=== PATIENT | male | born 1985 | race Caucasian/White ===

== ENCOUNTER 2020-12-05 22:02 | Emergency (ER) | payer OTHER ==
[~2020-12-05] VITALS: Ht 182.9 cm; Wt 113.6 kg
[2020-12-05 22:59] LABS: BASOPHILS % (AUTO) 1 % (0-1); EOSINOPHILS % (AUTO) 2 % (1-7); LYMPHOCYTES % (AUTO) 32 % (22-44); MEAN CORPUSCULAR HGB CONC 33.5 g/dL (33.2-36.2); MONOCYTES % (AUTO) 10 % (2-9); NEUTROPHILS % (AUTO) 56 % (42-75); PLATELET COUNT 307 x10^3/uL (130-400); RED BLOOD COUNT 4.44 x10^6/uL (4.38-5.82); RED CELL DISTRIBUTION WIDTH 13.4 % (9.4-14.8)
[2020-12-05 23:11] LABS: ALANINE AMINOTRANSFERASE 28 U/L (12-78); ANION GAP 6 mmol/L (5-15); CALCIUM 7.9 mg/dL (8.5-10.1); CHLORIDE 105 mmol/L (98-107)
[2020-12-05 23:12] LABS: SALICYLATE LEVEL < 1.7 mg/dL (2.8-20.0)
[2020-12-05 23:20] LABS: ALKALINE PHOSPHATASE 50 U/L (45-117); BILIRUBIN,TOTAL 0.4 mg/dL (0.2-1.0); TOTAL PROTEIN 6.6 g/dL (6.4-8.2)
[2020-12-05 23:39] LABS: AMPHETAMINE SCREEN, URINE Negative (Negative); BARBITURATE SCREEN, URINE Negative (Negative); BENZODIAZEPINE SCREEN, URINE Positive (Negative); CANNABINOID SCREEN, URINE Positive (Negative); COCAINE SCREEN, URINE Negative (Negative); METHADONE SCREEN, URINE Negative (Negative); OPIATE SCREEN, URINE Negative (Negative)
[2020-12-06 00:54] VITALS: BP 130/59
--- NOTE | 2020-12-06 00:55 | NUR ---
PATIENT AMBULATED WITHOUT ASSISTANCE. VSS. ALERT AND ORIENTED TIMES 4
== END 2020-12-06 00:57 ==
LOC: ED 22:32
DX: J18.9 Pneumonia, unspecified organism (principal); F10.10 Alcohol abuse, uncomplicated; F12.10 Cannabis abuse, uncomplicated; Z72.9 Problem related to lifestyle, unspecified; Z20.822 Contact with and (suspected) exposure to COVID-19; F17.210 Nicotine dependence, cigarettes, uncomplicated; R94.31 Abnormal electrocardiogram [ECG] [EKG]
CPT/HCPCS: 36415; 71045; 80053; 80299; 80307; 80320; 84443; 85025; 93005; 99285; 99406; U0003; U0005; 80329; G0480

== ENCOUNTER 2020-12-09 19:14 | Emergency (ER) | payer OTHER ==
[~2020-12-09] VITALS: Ht 180.3 cm; Wt 115.0 kg
[2020-12-09 20:49] LABS: BASOPHILS % (AUTO) 1 % (0-1); EOSINOPHILS % (AUTO) 2 % (1-7); LYMPHOCYTES % (AUTO) 31 % (22-44); MEAN CORPUSCULAR HEMOGLOBIN 30.4 pg (27.5-34.5); MEAN CORPUSCULAR HGB CONC 33.7 g/dL (33.2-36.2); MEAN PLATELET VOLUME 6.8 fL (7.4-10.4); MONOCYTES % (AUTO) 7 % (2-9); NEUTROPHILS % (AUTO) 60 % (42-75); PLATELET COUNT 377 x10^3/uL (130-400); RED BLOOD COUNT 4.89 x10^6/uL (4.38-5.82); RED CELL DISTRIBUTION WIDTH 14.2 % (9.4-14.8)
[2020-12-09 20:57] LABS: ALBUMIN 3.8 g/dL (3.4-5.0); ANION GAP 5 mmol/L (5-15); CALCIUM 8.4 mg/dL (8.5-10.1); CHLORIDE 103 mmol/L (98-107); CREATININE 1.24 mg/dL (0.7-1.3)
--- NOTE | 2020-12-09 21:02 | NUR ---
PT AMBULATED TO RESTROOM WITH STEADY GAIT. PT HAD REMOVED ALL MONITORING HIMSELF. PT AWAKE, BUT NOT ANSWERING QUESTIONS.
[2020-12-09 21:05] LABS: ALANINE AMINOTRANSFERASE 37 U/L (12-78); ALKALINE PHOSPHATASE 67 U/L (45-117); BILIRUBIN,TOTAL 0.3 mg/dL (0.2-1.0); TOTAL PROTEIN 8.1 g/dL (6.4-8.2)
--- NOTE | 2020-12-09 21:16 | NUR ---
PT SLEEPING ON GURNEY, RESP EVEN AND UNLABORED. PT HAD REMOVED OXYGEN AND RA SATS 86%. PT PLACED BACK ON OXYGEN 2L VIA NC, OXYGEN 94%. PT SLEPT WHILE OXYGEN REPLACED.
--- NOTE | 2020-12-09 21:47 | NUR ---
PER ERMD, PT TO BE MTF.
--- NOTE | 2020-12-09 23:10 | NUR ---
PT SLEEPING ON GURNEY. RESP EVEN AND UNLABORED. PT CONTINUES ON OXYGEN AND CONNECTED TO MONITORING.
--- NOTE | 2020-12-10 00:47 | NUR ---
PT SLEEPING ON GURNEY. RESP EVEN AND UNLABORED. PT DOES NOT MOVE OR FLINCH WHEN SHAKEN OR FINGER PINCHED. ERMD NOTIFIED. PT TO BE ED OBS ADMIT. APPLICATION SYSTEMS ADMINISTRATOR NOTIFIED.
--- NOTE | 2020-12-10 01:02 | NUR ---
BREAK RN: RN TO BS TO REPOSITION PT, DURING REPOSITIONING PT OPENED EYES, RN WATCHED PT AMBULATE TO AND FROM RESTROOM WITH A SMOOTH AND STEADY GAIT, ERP AWARE, PT CURRENTLY GETTING DRESSED, TO BE DC'D
[2020-12-10 01:11] VITALS: BP 138/78
--- NOTE | 2020-12-10 01:21 | NUR ---
break rn: Patient/Caregiver given verbal discharge instructions and they have confirmed that they understand the instructions. Patient ambulatory with steady gait. NAD, all questions answered appropriately, denies additional needs at this time. No personal belongings left in room after discharge.
== END 2020-12-09 19:30 ==
LOC: ED 19:30 → UNDOADMOB 12-10 00:59 → EDIP 12-10 00:59
DX: F10.220 Alcohol dependence with intoxication, uncomplicated (principal); Z72.9 Problem related to lifestyle, unspecified; F13.10 Sedative, hypnotic or anxiolytic abuse, uncomplicated; F17.200 Nicotine dependence, unspecified, uncomplicated; R00.0 Tachycardia, unspecified; Y90.0 Blood alcohol level of less than 20 mg/100 ml
CPT/HCPCS: 36415; 80053; 80320; 85025; 99283; G0480

== ENCOUNTER 2020-12-22 14:11 | Emergency (ER) | payer SELFPAY ==
[~2020-12-22] VITALS: Ht 180.3 cm; Wt 111.5 kg
--- NOTE | 2020-12-22 14:20 | NUR ---
THIS IS A 35 YO M BIB EMS W/ C/O SI W/ PLAN TO CUT WRIST. PT REPORTS HX OF SA X5 YEARS S/P MOM PASSING AWAY. PT REPORTS THAT HE CAME TO [place] FOR [employer] [facility] AND GOT FROM HIS GROUP. HE HAS BEEN HERE SINCE AND IS EXPERIENCING LONELINESS. PT REPORTS NO HOME MEDS X1 MONTH. HX: BIPOLAR, SCHITZOPHRENIA AND PTSD. BELONGINGS REMOVED AND PLACED IN SAFE KEEPING. PT DENIES ELECTRONICS OR [employer]LET THAT HE WANTS TO LOG W/ SECURITY. SARAH DUEÑAS AT BEDSIDE FOR ED EVAL.
[2020-12-22 14:32] LABS: BASOPHILS % (AUTO) 1 % (0-1); EOSINOPHILS % (AUTO) 4 % (1-7); LYMPHOCYTES % (AUTO) 35 % (22-44); MEAN CORPUSCULAR HEMOGLOBIN 30.8 pg (27.5-34.5); MEAN CORPUSCULAR HGB CONC 34.3 g/dL (33.2-36.2); MEAN PLATELET VOLUME 6.6 fL (7.4-10.4); MONOCYTES % (AUTO) 10 % (2-9); NEUTROPHILS % (AUTO) 51 % (42-75); PLATELET COUNT 431 x10^3/uL (130-400); RED CELL DISTRIBUTION WIDTH 14.1 % (9.4-14.8)
--- NOTE | 2020-12-22 14:34 | NUR ---
URINE COLLECTED AND SENT TO LAB. PT PROVIDED W/ WARM BLANKET AND WATER. DIET TRAY ORDERED. GARAGE DOORS DOWNX2 AND SITTER OUTSIDE ROOM FOR SAFETY.
[2020-12-22 14:47] LABS: ALANINE AMINOTRANSFERASE 36 U/L (12-78); ALBUMIN 3.7 g/dL (3.4-5.0); ANION GAP 12 mmol/L (5-15); CALCIUM 7.6 mg/dL (8.5-10.1); CHLORIDE 101 mmol/L (98-107)
[2020-12-22 14:49] LABS: ALKALINE PHOSPHATASE 71 U/L (45-117); BILIRUBIN,TOTAL 0.4 mg/dL (0.2-1.0); SALICYLATE LEVEL 2.3 mg/dL (2.8-20.0); TOTAL PROTEIN 7.6 g/dL (6.4-8.2)
[2020-12-22 14:59] LABS: AMPHETAMINE SCREEN, URINE Positive (Negative); BARBITURATE SCREEN, URINE Negative (Negative); BENZODIAZEPINE SCREEN, URINE Positive (Negative); CANNABINOID SCREEN, URINE Positive (Negative); COCAINE SCREEN, URINE Negative (Negative); METHADONE SCREEN, URINE Negative (Negative); OPIATE SCREEN, URINE Negative (Negative)
--- NOTE | 2020-12-22 15:00 | NUR ---
SAFETY DIET TRAY DELIVERED.
--- NOTE | 2020-12-22 16:00 | NUR ---
PT SLEEPING ON GURNEY W/ GARAGE DOORS DOWNX2. ONCOLOGY ADMIN AWARE OF NEED FOR SITTER.
--- NOTE | 2020-12-22 16:50 | NUR ---
task RN: assumed care of pt on behalf of primary RN fpr lunch break only pt currently resitng on [facility] with eyes closed. no apparent distress. room secured for patient safety
--- NOTE | 2020-12-22 17:26 | NUR ---
task RN: report to Pastora CARBAJAL
--- NOTE | 2020-12-22 18:22 | NUR ---
BREATHALYZER 0.125 AT THIS TIME. SITTER AT BEDSIDE AT THIS TIME. PT RETURNED TO SLEEPING ON GURNEY W/ GARAGE DOORS DOWNX2. RESP EVEN AND UNLABORED, SILVIA.
--- NOTE | 2020-12-22 19:04 | NUR ---
REPORT TO ODALIS CARBAJAL. PT SLEEPING ON GURNEY W/ CALL LIGHT IN REACH AND SIDE RAILS UPX2. RESP EVEN AND UNLABORED, SILVIA.
[2020-12-22 19:11] VITALS: BP 132/73
--- NOTE | 2020-12-22 19:11 | NUR ---
patient sleeping in room comfortably. vss. belongings already secured. room secured. patient has no current needs at this time
--- NOTE | 2020-12-22 20:16 | NUR ---
patient sleeping in room comfortably. patient has no current needs at this time
--- NOTE | 2020-12-22 21:32 | NUR ---
patient sleeping in room comfortably. patient has no current needs at this time
--- NOTE | 2020-12-22 22:41 | NUR ---
patient sleeping in room comfortably. patient has no current needs at this time
--- NOTE | 2020-12-22 23:18 | NUR ---
patient sleeping in room comfortably. patient has no current needs at this time
[2020-12-22] MEDS ORDERED: LORazepam 1MG TABLET ONE (23:36)
[2020-12-23] MEDS ORDERED: LORazepam 1MG TABLET PO ONE
--- NOTE | 2020-12-23 00:38 | NUR ---
patient sleeping in room comfortably. patient has no current needs at this time
--- NOTE | 2020-12-23 01:27 | NUR ---
patient sleeping in room comfortably. patient has no current needs at this time
--- NOTE | 2020-12-23 02:16 | NUR ---
patient sleeping in room comfortably. patient has no current needs at this time
--- NOTE | 2020-12-23 03:22 | NUR ---
patient sleeping in room comfortably. patient has no current needs at this time
--- NOTE | 2020-12-23 04:46 | NUR ---
patient cleared by telepsych doctor for discharge and spoke with Sarah HAHN about consultation. Patient upset and wanting to leave. Patient eloped from ER before receiving discharge paperwork. patient ambulatory by self and VSS and Alert and oriented times 4
== END 2020-12-23 04:51 | disposition left against medical advice (07) ==
LOC: ED 20:28
DX: R45.851 Suicidal ideations (principal); F15.20 Other stimulant dependence, uncomplicated; Z72.9 Problem related to lifestyle, unspecified; Z91.14 Patient's other noncompliance with medication regimen
CPT/HCPCS: 36415; 80053; 80299; 80307; 80320; 80329; 85025; 99285; G0480